=== PATIENT | female | born 1985 | race Two or more races ===

== ENCOUNTER 2021-11-12 17:19 | Emergency (ER) | payer MEDICAID ==
[~2021-11-12] VITALS: Ht 162.6 cm; Wt 176.9 kg
[2021-11-12 17:24] VITALS: BP 134/77
[2021-11-12] MEDS ORDERED: SILVER SULFADIAZINE 1 % TOPICAL CREAM 50GM TOP ONE (18:00)
== END 2021-11-12 18:12 | disposition home or self-care (01) ==
LOC: ER 17:19
DX: T23.222A Burn of second degree of single left finger (nail) except thumb, initial encounter (principal); T23.1 Burn of first degree of wrist and hand; X08.8XXA Exposure to other specified smoke, fire and flames, initial encounter; Y93.89 Activity, other specified; Y92.89 Other specified places as the place of occurrence of the external cause; Y99.8 Other external cause status
CPT/HCPCS: 16020

== ENCOUNTER 2022-07-11 14:18 | Emergency (ER) | payer MEDICAID ==
[~2022-07-11] VITALS: Ht 162.6 cm; Wt 136.3 kg
[2022-07-11 14:44] LABS: Basophils # (auto) 0 10 ^3/uL (0-0.2); Basophils % (auto) 0.6 % (0.0-2.0); Eosinophils # (auto) 0 10 ^3/uL (0-0.8); Eosinophils % (auto) 0.7 % (0.0-7.0); Hematocrit 40.2 % (36.0-46.0); Hemoglobin 13.6 g/dL (12.2-16.2); Lymphocytes # (auto) 2.2 10 ^3/uL (0.4-5.4); Lymphocytes % (auto) 32.9 % (10.0-50.0); Mean Corpuscular Hemoglobin 32.1 pg (28.0-32.0); Mean Corpuscular Hgb Conc. 33.7 g/dL (32.0-36.0); Mean Corpuscular Volume 95.3 fL (80.0-100.0); Monocytes # (auto) 0.3 10 ^3/uL (0-1.3); Monocytes % (auto) 4.2 % (0.0-12.0); Neutrophils # (auto) 4.1 10 ^3/uL (1.6-8.6); Neutrophils % (auto) 61.6 % (37.0-80.0); Nucleated Red Blood Cells % 0.1 %; Red Blood Cells 4.22 10^6/uL (4.0-5.20); Red Cell Distribution Width 12.8 % (11.8-14.3); White Blood Cell 6.7 10^3/uL (4.4-10.8)
[2022-07-11 15:03] LABS: Albumin 3.2 g/dL (3.4-5.0); Calcium 8.8 mg/dL (8.5-10.1); Magnesium 1.9 mg/dL (1.6-2.6); Potassium 3.9 mmol/L (3.5-5.1)
[2022-07-11 15:04] LABS: INR 1.02 (0.9-1.15); Partial Thromboplastin Time 26.8 sec (24.6-33.4)
[2022-07-11 15:06] LABS: BUN/Creatinine Ratio 19.2
[2022-07-11 15:07] LABS: Bilirubin, Total 0.6 mg/dL (0.2-1.0); Total Protein 6.6 g/dL (6.4-8.2)
[2022-07-11 18:51] VITALS: BP 137/82
== END 2022-07-11 18:53 | disposition home or self-care (01) ==
LOC: ER 14:18
DX: R07.89 Other chest pain (principal); Z79.899 Other long term (current) drug therapy
CPT/HCPCS: 36415; 71045; 80053; 83735; 83880; 84484; 85025; 85379; 85610; 85730; 93005

== ENCOUNTER 2024-02-23 23:55 | Emergency (ER) | payer MEDICAID, OTHER ==
[~2024-02-23] VITALS: Ht 165.1 cm; Wt 145.0 kg
[2024-02-24 00:55] VITALS: BP 132/84
[2024-02-24] MEDS ORDERED: ACET500T58 PO (01:11)
[2024-02-24] MEDS ORDERED: CYCL-837 PO (01:11)
[2024-02-24 01:16] VITALS: TEMP 97.3
[2024-02-24] MEDS: ACETAMINOPHEN 325 MG TAB PO ONE (01:16)
[2024-02-24 02:01] VITALS: PULSE 74; RESP 18; O2SAT 99
== END 2024-02-24 02:02 | disposition home or self-care (01) ==
LOC: ER 23:55
DX: S16.1XXA Strain of muscle, fascia and tendon at neck level, initial encounter (principal); S09.90XA Unspecified injury of head, initial encounter; Z98.890 Other specified postprocedural states; Z79.1 Long term (current) use of non-steroidal anti-inflammatories (NSAID); V49.49XA Driver injured in collision with other motor vehicles in traffic accident, initial encounter; Y93.89 Activity, other specified; Y92.89 Other specified places as the place of occurrence of the external cause; Y99.8 Other external cause status
CPT/HCPCS: 70450; 72125